=== PATIENT | male | born 1940 | race Caucasian/White ===

== ENCOUNTER → 2018-04-09 14:15 | Outpatient (CLI) | payer MEDICARE, BC, SELFPAY ==
[2018-04-09 15:27] LABS: Add Manual Diff / Slide Review NO; Basophils Percent Auto 1.2 % (0-2); Eosinophils Percent Auto 5.5 % (2-4); Hematocrit 42.1 % (41-53); Hemoglobin 14.4 g/dL (13.5-17.5); Lymphocytes Percent Auto 27.7 % (25-40); Mean Corpuscular HGB Conc 34.2 % (30-36); Mean Corpuscular Hemoglobin 31.7 PG (26-34); Mean Corpuscular Volume 92.5 fL (80-100); Monocytes Percent Auto 8.5 % (3-14); Neutrophils Absolute Auto 4000 /uL (3000-5900); Neutrophils Percent Auto 57.1 % (50-75); Platelet Count 223 X10^3/uL (150-400); Red Blood Cell Count 4.55 X10^6/uL (4.5-5.9); Red Cell Distribution Width 13.4 % (11.6-14.8)
[2018-04-09 15:38] LABS: Alanine Aminotransferase 19 IU/L (21-72); Albumin 4.3 g/dL (3.5-5.0); Albumin Globulin Ratio 1.5 (1.0-2.8); Alkaline Phosphatase 58 U/L (38-126); Aspartate Aminotransferase 25 IU/L (17-59); BUN Creatinine Ratio 18.6 (6-22); Bilirubin Total 0.5 mg/dL (0.2-1.3); Blood Urea Nitrogen 26 mg/dL (9-20); Calcium 10.3 mg/dL (8.4-10.2); Carbon Dioxide 28 mmol/L (22-32); Chloride 103 mmol/L (98-107); Estimated Glomerular Filt Rate 48.9 mL/min (>60); Globulin 2.9 g/dL (1.7-4.1); Glucose 96 mg/dL (80-110); HEMOLYSIS < 15 (0-50); Potassium 4.9 mmol/L (3.4-5.1); Sodium 143 mmol/L (137-145); Total Protein 7.2 g/dL (6.3-8.2)
[2018-04-09 16:24] LABS: Vitamin B12 944 pg/mL (239-931)
== END ==
PROVIDERS: Visit Provider Registered Nurse
DX: Z87.448 Personal history of other diseases of urinary system (principal); F03.90 Unspecified dementia, unspecified severity, without behavioral disturbance, psychotic disturbance, mood disturbance, and anxiety; E16.2 Hypoglycemia, unspecified
CPT/HCPCS: 36415; 80053; 82607; 85025

== ENCOUNTER → 2018-05-21 15:02 | Outpatient (CLI) | payer MEDICARE, BC, SELFPAY ==
[2018-05-21 15:55] LABS: BUN Creatinine Ratio 15.6 (6-22); Blood Urea Nitrogen 25 mg/dL (9-20); Calcium 10.5 mg/dL (8.4-10.2); Carbon Dioxide 26 mmol/L (22-32); Chloride 105 mmol/L (98-107); Estimated Glomerular Filt Rate 41.9 mL/min (>60); Glucose 79 mg/dL (80-110); HEMOLYSIS 76 (0-50); Sodium 142 mmol/L (137-145)
[2018-05-21 15:56] LABS: Potassium 4.8 mmol/L (3.4-5.1)
[2018-05-21 16:40] LABS: Thyroid Stimulating Hormone 2.64 uIU/mL (0.47-4.68)
== END ==
PROVIDERS: PCP Registered Nurse; Visit Provider Registered Nurse
DX: I12.9 Hypertensive chronic kidney disease with stage 1 through stage 4 chronic kidney disease, or unspecified chronic kidney disease (principal)
CPT/HCPCS: 36415; 80048; 84443

== ENCOUNTER → 2018-06-05 11:51 | Outpatient (CLI) | payer MEDICARE, BC, SELFPAY ==
[2018-06-05 12:27] LABS: BUN Creatinine Ratio 15.3 (6-22); Blood Urea Nitrogen 23 mg/dL (9-20); Calcium 10.2 mg/dL (8.4-10.2); Carbon Dioxide 28 mmol/L (22-32); Chloride 102 mmol/L (98-107); Estimated Glomerular Filt Rate 45.1 mL/min (>60); Glucose 74 mg/dL (80-110); HEMOLYSIS 31 (0-50); Potassium 4.3 mmol/L (3.4-5.1); Sodium 141 mmol/L (137-145)
== END ==
PROVIDERS: PCP Registered Nurse; Visit Provider Registered Nurse
DX: N17.9 Acute kidney failure, unspecified (principal)
CPT/HCPCS: 36415; 80048

== ENCOUNTER → 2018-07-16 13:40 | Outpatient (CLI) | payer MEDICARE, BC, SELFPAY ==
[2018-07-16 15:37] LABS: BUN Creatinine Ratio 16.7 (6-22); Blood Urea Nitrogen 20 mg/dL (9-20); Calcium 10.3 mg/dL (8.4-10.2); Carbon Dioxide 28 mmol/L (22-32); Chloride 103 mmol/L (98-107); Estimated Glomerular Filt Rate 58.4 mL/min (>60); Glucose 99 mg/dL (80-110); HEMOLYSIS < 15 (0-50); Potassium 4.5 mmol/L (3.4-5.1); Sodium 140 mmol/L (137-145)
== END ==
PROVIDERS: PCP Registered Nurse; Visit Provider Registered Nurse
DX: I12.9 Hypertensive chronic kidney disease with stage 1 through stage 4 chronic kidney disease, or unspecified chronic kidney disease (principal)
CPT/HCPCS: 36415; 80048

== ENCOUNTER → 2019-01-20 13:48 | Outpatient (CLI) | payer MEDICARE, BC, SELFPAY ==
[2019-01-20 14:42] LABS: Add Manual Diff / Slide Review NO; Basophils Absolute Auto 0 /uL (0-100); Basophils Percent Auto 0.3 % (0-2); Eosinophils Absolute Auto 300 /uL (0-450); Eosinophils Percent Auto 4.5 % (2-4); Hematocrit 43.3 % (41-53); Hemoglobin 14.4 g/dL (13.5-17.5); Lymphocytes Absolute Auto 1900 /uL (1100-4500); Lymphocytes Percent Auto 27.8 % (25-40); Mean Corpuscular HGB Conc 33.4 % (30-36); Mean Corpuscular Hemoglobin 31.3 PG (26-34); Mean Corpuscular Volume 93.6 fL (80-100); Monocytes Absolute Auto 500 /uL (0-900); Monocytes Percent Auto 7.4 % (3-14); Neutrophils Absolute Auto 4200 /uL (1500-7000); Platelet Count 246 X10^3/uL (150-400); Red Blood Cell Count 4.62 X10^6/uL (4.5-5.9); Red Cell Distribution Width 13.8 % (11.6-14.8)
[2019-01-20 15:13] LABS: Alanine Aminotransferase 15 IU/L (21-72); Albumin 4.4 g/dL (3.5-5.0); Albumin Globulin Ratio 1.5 (1.0-2.8); Alkaline Phosphatase 71 U/L (38-126); Aspartate Aminotransferase 23 IU/L (17-59); BUN Creatinine Ratio 15.8 (6-22); Bilirubin Total 0.8 mg/dL (0.2-1.3); Blood Urea Nitrogen 19 mg/dL (9-20); Calcium 10.7 mg/dL (8.4-10.2); Carbon Dioxide 27 mmol/L (22-32); Chloride 102 mmol/L (98-107); Estimated Glomerular Filt Rate 58.3 mL/min (>60); Globulin 2.9 g/dL (1.7-4.1); Glucose 127 mg/dL (80-110); HEMOLYSIS < 15 (0-50); Potassium 4.4 mmol/L (3.4-5.1); Sodium 141 mmol/L (137-145); Total Protein 7.3 g/dL (6.3-8.2)
[2019-01-20 16:02] LABS: Vitamin B12 704 pg/mL (239-931)
== END ==
PROVIDERS: PCP Nurse Practitioner Family; Visit Provider Nurse Practitioner Family
DX: I12.9 Hypertensive chronic kidney disease with stage 1 through stage 4 chronic kidney disease, or unspecified chronic kidney disease (principal)
CPT/HCPCS: 36415; 80053; 82607; 84443; 85025

== ENCOUNTER → 2019-02-17 15:19 | Outpatient (CLI) | payer MEDICARE, BC, SELFPAY ==
[2019-02-17 16:00] LABS: Add Manual Diff / Slide Review NO; Basophils Absolute Auto 100 /uL (0-100); Basophils Percent Auto 0.7 % (0-2); Eosinophils Absolute Auto 400 /uL (0-450); Eosinophils Percent Auto 5.2 % (2-4); Hematocrit 43.8 % (41-53); Hemoglobin 14.6 g/dL (13.5-17.5); Lymphocytes Absolute Auto 2200 /uL (1100-4500); Mean Corpuscular HGB Conc 33.4 % (30-36); Mean Corpuscular Hemoglobin 31.5 PG (26-34); Mean Corpuscular Volume 94.4 fL (80-100); Monocytes Absolute Auto 700 /uL (0-900); Monocytes Percent Auto 9.4 % (3-14); Neutrophils Absolute Auto 4400 /uL (1500-7000); Neutrophils Percent Auto 56.7 % (50-75); Platelet Count 248 X10^3/uL (150-400); Red Blood Cell Count 4.64 X10^6/uL (4.5-5.9); Red Cell Distribution Width 13.5 % (11.6-14.8); White Blood Cell Count 7.7 X10^3/uL (4.5-11.0)
[2019-02-17 16:07] LABS: Alanine Aminotransferase 18 IU/L (21-72); Albumin 4.7 g/dL (3.5-5.0); Albumin Globulin Ratio 1.6 (1.0-2.8); Alkaline Phosphatase 67 U/L (38-126); Aspartate Aminotransferase 26 IU/L (17-59); BUN Creatinine Ratio 15.4 (6-22); Bilirubin Total 0.8 mg/dL (0.2-1.3); Blood Urea Nitrogen 20 mg/dL (9-20); Carbon Dioxide 29 mmol/L (22-32); Chloride 101 mmol/L (98-107); Estimated Glomerular Filt Rate 53.1 mL/min (>60); Glucose 92 mg/dL (80-110); HEMOLYSIS 36 (0-50); Potassium 4.7 mmol/L (3.4-5.1); Sodium 141 mmol/L (137-145); Total Protein 7.7 g/dL (6.3-8.2)
== END ==
PROVIDERS: PCP Nurse Practitioner Family; Visit Provider Nurse Practitioner Family
DX: R17 Unspecified jaundice (principal); R35.0 Frequency of micturition; R45.1 Restlessness and agitation
CPT/HCPCS: 36415; 80053; 85025

== ENCOUNTER → 2019-02-19 11:33 | Outpatient (ROUT) | payer MEDICARE, BC, SELFPAY ==
[2019-02-19 11:35] LABS: Bacteria Urine None Seen; RBC Urine None Seen (0-5/HPF); WBC Urine None Seen (0-5/HPF)
[2019-02-19 11:41] LABS: Appearance Urine UA CLEAR; Bilirubin Urine UA NEGATIVE (NEGATIVE); Color Urine UA YELLOW; Glucose Urine UA NEGATIVE (Negative); Ketones Urine UA NEGATIVE (NEGATIVE); Leukocyte Esterase Urine UA NEGATIVE (NEGATIVE); Nitrite Urine UA NEGATIVE (Negative); Occult Blood Urine UA NEGATIVE (Negative); Protein Urine UA NEGATIVE (Negative); Urobilinogen Urine UA 0.2 E.U./dL (0.2); pH Urine UA 7.5 (4.5-8.0)
[2019-02-19 11:48] LABS: Amorphous Sediment Urine 1+; Culture Indicated Urine Cult Not Indicated
== END ==
PROVIDERS: PCP Nurse Practitioner Family; Visit Provider Nurse Practitioner Family
DX: R39.15 Urgency of urination (principal); R35.0 Frequency of micturition
CPT/HCPCS: 81001

== ENCOUNTER → 2019-04-08 11:13 | Outpatient (CLI) | payer MEDICARE, BC, SELFPAY ==
[2019-04-08 12:05] LABS: Add Manual Diff / Slide Review NO; Basophils Absolute Auto 100 /uL (0-100); Basophils Percent Auto 1.2 % (0-2); Eosinophils Absolute Auto 400 /uL (0-450); Eosinophils Percent Auto 5.4 % (2-4); Hematocrit 42.6 % (41-53); Hemoglobin 14.6 g/dL (13.5-17.5); Lymphocytes Absolute Auto 2000 /uL (1100-4500); Lymphocytes Percent Auto 23.7 % (25-40); Mean Corpuscular HGB Conc 34.2 % (30-36); Mean Corpuscular Hemoglobin 31.7 PG (26-34); Mean Corpuscular Volume 92.5 fL (80-100); Monocytes Absolute Auto 700 /uL (0-900); Monocytes Percent Auto 8.5 % (3-14); Neutrophils Absolute Auto 5100 /uL (1500-7000); Neutrophils Percent Auto 61.2 % (50-75); Platelet Count 252 X10^3/uL (150-400); Red Cell Distribution Width 13.4 % (11.6-14.8); White Blood Cell Count 8.3 X10^3/uL (4.5-11.0)
[2019-04-08 12:16] LABS: Blood Urea Nitrogen 18 mg/dL (9-20); Calcium 10.6 mg/dL (8.4-10.2); Carbon Dioxide 31 mmol/L (22-32); Chloride 100 mmol/L (98-107); Glucose 110 mg/dL (80-110); HEMOLYSIS < 15 (0-50); Potassium 4.2 mmol/L (3.4-5.1); Sodium 138 mmol/L (137-145)
== END ==
PROVIDERS: PCP Nurse Practitioner Family; Visit Provider Registered Nurse
DX: R45.1 Restlessness and agitation (principal); N18.9 Chronic kidney disease, unspecified
CPT/HCPCS: 36415; 80048; 85025

== ENCOUNTER → 2019-06-01 12:19 | Outpatient (CLI) | payer MEDICARE, BC, SELFPAY ==
[2019-06-01 12:47] LABS: Add Manual Diff / Slide Review NO; Basophils Absolute Auto 0 /uL (0-100); Basophils Percent Auto 0.5 % (0-2); Eosinophils Absolute Auto 500 /uL (0-450); Eosinophils Percent Auto 5.3 % (2-4); Hematocrit 42.4 % (41-53); Hemoglobin 14.6 g/dL (13.5-17.5); Lymphocytes Absolute Auto 2800 /uL (1100-4500); Lymphocytes Percent Auto 32.2 % (25-40); Mean Corpuscular HGB Conc 34.5 % (30-36); Mean Corpuscular Hemoglobin 31.7 PG (26-34); Mean Corpuscular Volume 92.1 fL (80-100); Monocytes Absolute Auto 800 /uL (0-900); Monocytes Percent Auto 9.1 % (3-14); Neutrophils Absolute Auto 4700 /uL (1500-7000); Neutrophils Percent Auto 52.9 % (50-75); Platelet Count 314 X10^3/uL (150-400); Red Cell Distribution Width 13.5 % (11.6-14.8); White Blood Cell Count 8.8 X10^3/uL (4.5-11.0)
[2019-06-01 13:19] LABS: Alanine Aminotransferase 15 IU/L (<50); Albumin 4.3 g/dL (3.5-5.0); Albumin Globulin Ratio 1.3 (1.0-2.8); Alkaline Phosphatase 95 U/L (38-126); Aspartate Aminotransferase 23 IU/L (17-59); BUN Creatinine Ratio 12.4 (6-22); Bilirubin Total 0.5 mg/dL (0.2-1.3); Blood Urea Nitrogen 21 mg/dL (9-20); Calcium 10.7 mg/dL (8.4-10.2); Carbon Dioxide 30 mmol/L (22-32); Chloride 103 mmol/L (98-107); Globulin 3.2 g/dL (1.7-4.1); Glucose 74 mg/dL (80-110); HEMOLYSIS < 15 (0-50); Potassium 4.3 mmol/L (3.4-5.1); Sodium 142 mmol/L (137-145); Total Protein 7.5 g/dL (6.3-8.2)
== END ==
PROVIDERS: PCP Nurse Practitioner Family; Referring Provider Nurse Practitioner Family; Visit Provider Nurse Practitioner Family
DX: R25.1 Tremor, unspecified (principal); R53.83 Other fatigue
CPT/HCPCS: 36415; 80053; 85025

== ENCOUNTER → 2019-06-16 14:43 | Outpatient (CLI) | payer MEDICARE, BC, SELFPAY ==
[2019-06-16 16:15] LABS: BUN Creatinine Ratio 14.3 (6-22); Blood Urea Nitrogen 20 mg/dL (9-20); Calcium 10.5 mg/dL (8.4-10.2); Carbon Dioxide 29 mmol/L (22-32); Chloride 105 mmol/L (98-107); Estimated Glomerular Filt Rate 48.8 mL/min (>60); Glucose 93 mg/dL (80-110); HEMOLYSIS < 15 (0-50); Potassium 4.5 mmol/L (3.4-5.1); Sodium 143 mmol/L (137-145)
== END ==
PROVIDERS: PCP Nurse Practitioner Family; Referring Provider Nurse Practitioner Family; Visit Provider Nurse Practitioner Family
DX: N18.9 Chronic kidney disease, unspecified (principal); N17.9 Acute kidney failure, unspecified
CPT/HCPCS: 36415; 80048

== ENCOUNTER 2019-11-03 09:20 | Emergency (ER) | payer MEDICARE, BC, SELFPAY ==
[2019-11-03] VITALS (8 sets, daily range): BP systolic 109–149; BP diastolic 56–67; PULSE 53–66; RESP 21–38; TEMP 36.6; O2SAT 95–99
--- NOTE | 2019-11-03 09:34 | ED.SEIZURE ---
HPI - Seizure General Chief Complaint: Seizure Stated Complaint: shaking x 2 min, now at baseline Time Seen by Provider: 11/03/19 09:20 Source: EMS Mode of arrival: EMS Limitations: altered mental status History of Present Illness HPI Narrative: 79-year-old male former smoker with history of dementia presents with EMS for evaluation of an episode of shaking that was witnessed by staff at the senior living earlier today. At baseline he has a resting tremor but apparently today's episode was more significant and his whole body was shaking. There is not a great history of the event but there is some question as to whether not his eyes may have rolled back briefly, there is no suggestion of a postictal phase and the patient immediately returned back to his normal. He has no recent runny nose, sore throat or cough. He has had no fever or chills. No change in medications or diet. He has no seizure history. He has had no recent trauma. Patient had returned to his baseline prior to transfer and continues to be there on his arrival. MD complaint: possible seizure Onset (ago): minute(s) Description of Episode: loss of consciousness and tonic-clonic movement -: second(s) Witnessed: yes - by bystander Related Data Home Medications Medication Instructions Recorded Confirmed acetaminophen 650 mg PO Q4H PRN 11/03/19 11/03/19 aspirin [Adult Low Dose Aspirin] 81 mg PO DAILY 11/03/19 11/03/19 citalopram 15 mg PO DAILY 11/03/19 11/03/19 lorazepam 0.5 mg PO Q6HR PRN 11/03/19 11/03/19 mirtazapine 15 mg PO BEDTIME 11/03/19 11/03/19 trazodone 100 mg PO BID 11/03/19 11/03/19 vitamins A,C,N-dgcm-dktrqi 1 cap PO BID 11/03/19 11/03/19 [PreserVision AREDS] Allergies Allergy/AdvReac Type Severity Reaction Status Date / Time rivastigmine [From Exelon] Allergy Severe Gastrointestinal Verified 11/03/19 09:40 Upset gluten AdvReac Intermediate Gastrointestinal Verified 11/03/19 09:40 Upset Review of Systems Review of Systems ROS Unobtainable: Unobtainable due to mental status/LOC Patient History Medical History Alzheimer's dementia with behavioral disturbance (Acute) Anxiety (Acute) Chest pain (Acute) Chronic kidney disease (Acute) Hypoglycemia (Acute) Social History Smoking Status: Former smoker Smoking Status: Former smoker alcohol intake frequency: 0-2 drinks per day Substance Use Type: does not use Exam Narrative Exam Narrative: GENERAL: [79] year old patient appears stated age. Well-nourished, well-developed patient, in mild distress, asking about a Band-Aid on his finger. Awake but confused HEAD: Atraumatic. Normocephalic. EYES: Pupils equal round and reactive. Extraocular motions intact. No scleral icterus. No injection or drainage. ENT: Nose without bleeding, purulent drainage. Throat without erythema, tonsillar hypertrophy or exudate. Airway patent. NECK: Trachea midline. Non tender CARDIOVASCULAR: Regular rate and rhythm without murmurs, gallops, or rubs. RESPIRATORY: Clear to auscultation. Breath sounds equal bilaterally. No wheezes, rales, or rhonchi. GASTROINTESTINAL: Abdomen soft, non-tender, nondistended. EXTREMITIES: No edema or joint tenderness. BACK: Nontender without deformity or crepitance. No flank tenderness. NEURO: Awake, moving all extremities. SKIN: No rash or erythema of visible areas Initial Vital Signs Initial Vital Signs: Vital Signs Temperature 97.9 F 11/03/19 09:22 Pulse Rate 62 11/03/19 09:22 Respiratory Rate 21 11/03/19 09:22 Blood Pressure 149/56 H 11/03/19 09:22 Pulse Oximetry 95 11/03/19 09:22 Course Orders Ordered: ED Orders 11/03/19 09:21 EKG-12 Lead Stat 11/03/19 09:34 Basic Metabolic Panel Stat Complete Blood Count AUTO DIFF Stat Lactate (Lactic Acid) Stat Procalcitonin Stat 11/03/19 09:52 Blood Culture Stat 11/03/19 10:25 CT head/brain wo con Stat Discontinued Medications Lorazepam (Ativan) 0.5 mg PO NOW ONE Stop: 11/03/19 11:10 Last Admin: 11/03/19 11:15 Dose: 0.5 mg Documented by: LEIGHTON Vital Signs Vital signs: Vital Signs - 8 hr 11/03/19 09:22 11/03/19 09:29 11/03/19 09:30 Temperature 97.9 F Pulse Rate 62 62 66 Respiratory Rate 21 Blood Pressure 149/56 H Pulse Oximetry 95 95 97 11/03/19 10:00 11/03/19 10:01 11/03/19 10:30 Temperature Pulse Rate 59 L 57 L 58 L Respiratory Rate 38 H 31 H 29 H Blood Pressure 109/59 L Pulse Oximetry 97 97 97 11/03/19 10:44 11/03/19 11:00 Temperature Pulse Rate 64 53 L Respiratory Rate 25 H Blood Pressure 142/67 H Pulse Oximetry 99 MDM - Seizure Lab Data Result diagrams: 11/03/19 09:34 11/03/19 09:34 Labs: Lab Results 11/03/19 11/03/19 11/03/19 Range/Units 09:34 09:34 09:34 WBC 7.2 (4.5-11.0) X10^3/uL RBC 4.39 L (4.5-5.9) X10^6/uL Hgb 13.5 (13.5-17.5) g/dL Hct 41.2 (41-53) % MCV 93.9 (80-100) fL MCH 30.9 (26-34) PG MCHC 32.9 (30-36) % RDW 13.7 (11.6-14.8) % Plt Count 197 (150-400) X10^3/uL Neut % (Auto) 56.6 (50-75) % Lymph % (Auto) 27.5 (25-40) % [place] % (Auto) 8.3 (3-14) % Eos % (Auto) 6.3 H (2-4) % Baso % (Auto) 1.3 (0-2) % Neut # (Auto) 4100 (2312-2403) /uL Lymph # (Auto) 2000 (7407-1240) /uL [place] # (Auto) 600 (0-900) /uL Eos # (Auto) 500 H (0-450) /uL Baso # (Auto) 100 (0-100) /uL Sodium 140 (137-145) mmol/L Potassium 4.4 (3.4-5.1) mmol/L Chloride 110 H (98-107) mmol/L Carbon Dioxide 26 (22-32) mmol/L BUN 24 H (9-20) mg/dL Creatinine 1.30 H (0.66-1.25) mg/dL Estimated GFR 53.0 L (>60) mL/min BUN/Creatinine Ratio 18.5 (6-22) Glucose 88 (80-110) mg/dL Lactate (0.7-2.1) mmol/L Calcium 10.2 (8.4-10.2) mg/dL Procalcitonin < 0.05 (<0.5) ng/mL 11/03/19 Range/Units 09:34 WBC (4.5-11.0) X10^3/uL RBC (4.5-5.9) X10^6/uL Hgb (13.5-17.5) g/dL Hct (41-53) % MCV (80-100) fL MCH (26-34) PG MCHC (30-36) % RDW (11.6-14.8) % Plt Count (150-400) X10^3/uL Neut % (Auto) (50-75) % Lymph % (Auto) (25-40) % [place] % (Auto) (3-14) % Eos % (Auto) (2-4) % Baso % (Auto) (0-2) % Neut # (Auto) (0680-2941) /uL Lymph # (Auto) (9204-9507) /uL [place] # (Auto) (0-900) /uL Eos # (Auto) (0-450) /uL Baso # (Auto) (0-100) /uL Sodium (137-145) mmol/L Potassium (3.4-5.1) mmol/L Chloride (98-107) mmol/L Carbon Dioxide (22-32) mmol/L BUN (9-20) mg/dL Creatinine (0.66-1.25) mg/dL Estimated GFR (>60) mL/min BUN/Creatinine Ratio (6-22) Glucose (80-110) mg/dL Lactate 1.1 (0.7-2.1) mmol/L Calcium (8.4-10.2) mg/dL Procalcitonin (<0.5) ng/mL Imaging Data CT scan - head: Radiologist's Impression: Chart Viewer Diagnostics DATE TYPE STATUS REF RANGE/AUTHOR Hx 11/03/19 10:25 Ochoa Heaton Raúl Dutton 79, M0 1940 REG ER, Main ED R08 Seizure Search Chart No Data to Display Gastrointestinal Upset Gastrointestinal Upset ONSET Today 10:01 RAÚL DUTTON 79 M 1940 [place] [address] CT Scan Report Signed Patient: GERALD DUTTONR#: [id number] : 1940cct:[id number] Age/Sex: 79 / MDate of Service: 11/03/19 Loc: ED Accession Number: [id number] Procedure: CT head/brain wo con Ordering Provider: Christian Evans D.O. PROCEDURE: CT HEAD/BRAIN WO CON INDICATIONS: New onset seizure activity TECHNIQUE: Noncontrast 4.5 mm thick angled axial sections acquired from the foramen magnum to the vertex, with coronal and sagittal reformats. For radiation dose reduction, the following was used: automated exposure control, adjustment of mA and/or kV according to patient size. COMPARISON: None. FINDINGS: Image quality: Excellent. CSF spaces: Basal cisterns are patent. No extra-axial fluid collections. The ventricles are symmetric in size and shape. Brain: No intracranial bleeds or masses. There is global cerebral volume loss with past expansion of the ventricles extra-axial spaces. Advanced chronic microvascular ischemic changes are present. There is no cerebral edema or evidence of intracranial mass. No findings of mass effect. There is intracranial internal carotid artery atherosclerosis. Skull and face: Calvarium and visualized facial bones appear intact, without suspicious lesions. Sinuses: Visualized sinuses and mastoids are clear. IMPRESSION: Global cerebral volume loss with findings of chronic microvascular ischemic disease, both advanced for age. No acute intracranial finding. MRI with contrast should be considered for further workup if clinically warranted Dictated by: Ochoa Heaton M.D. on 11/03/2019 at 10:44 Approved by: Ochoa Heaton M.D. on 11/03/2019 at 10:46 MDM Narrative Medical decision making narrative: Multiple etiologies for patient's symptoms considered including: [Tremor versus rigors from infection (thought unlikely given lack of infectious findings), versus seizure activity, thought unlikely given lack of any postictal phase or loss of bladder control vs. other)] Patient's symptoms improved prior to patient arriving Findings and discharge diagnosis discussed with patient/family followed by verbalization of understanding Return precautions discussed with patient/family whom verbalize understanding. Discharge Plan Departure Patient Disposition: Home Clinical Impression: Coarse tremors Discharge Date/Time: 11/03/19 11:46 Activity Restrictions/Additional Instructions: *You have been diagnosed with [increased tremor, seizure considered but thought unlikely] *What to do: *Take medications as directed *Follow up with your primary care provider in 2-3 days, call for an appointment. Let them know you were seen in the Emergency Department and that we ask that you be seen in follow up *Return to ER if you should have any new, worsening or concerning symptoms Prescriptions: No Action acetaminophen 325 mg Tablet 650 mg PO Q4H PRN (Reason: headache, pain, fever ) RF: 0 citalopram 10 mg/5 mL Solution 15 mg PO DAILY RF: 0 aspirin [Adult Low Dose Aspirin] 81 mg Tablet,Delayed Release (Dr/Ec) 81 mg PO DAILY RF: 0 lorazepam 0.5 mg Tablet 0.5 mg PO Q6HR PRN (Reason: Anxiety) RF: 0 trazodone 100 mg Tablet 100 mg PO BID RF: 0 mirtazapine 15 mg Tablet,Disintegrating 15 mg PO BEDTIME RF: 0 PreserVision AREDS [id number] Capsule 1 cap PO BID RF: 0 Referrals: Anju Olivarez ARNP [Primary Care Provider] -
[2019-11-03 09:39] LABS: Add Manual Diff / Slide Review NO; Basophils Absolute Auto 100 /uL (0-100); Basophils Percent Auto 1.3 % (0-2); Eosinophils Absolute Auto 500 /uL (0-450); Eosinophils Percent Auto 6.3 % (2-4); Hematocrit 41.2 % (41-53); Hemoglobin 13.5 g/dL (13.5-17.5); Lymphocytes Absolute Auto 2000 /uL (1100-4500); Lymphocytes Percent Auto 27.5 % (25-40); Mean Corpuscular HGB Conc 32.9 % (30-36); Mean Corpuscular Hemoglobin 30.9 PG (26-34); Mean Corpuscular Volume 93.9 fL (80-100); Monocytes Absolute Auto 600 /uL (0-900); Monocytes Percent Auto 8.3 % (3-14); Neutrophils Absolute Auto 4100 /uL (1500-7000); Neutrophils Percent Auto 56.6 % (50-75); Platelet Count 197 X10^3/uL (150-400); Red Blood Cell Count 4.39 X10^6/uL (4.5-5.9); Red Cell Distribution Width 13.7 % (11.6-14.8); White Blood Cell Count 7.2 X10^3/uL (4.5-11.0)
[2019-11-03 09:48] LABS: BUN Creatinine Ratio 18.5 (6-22); Blood Urea Nitrogen 24 mg/dL (9-20); Calcium 10.2 mg/dL (8.4-10.2); Carbon Dioxide 26 mmol/L (22-32); Chloride 110 mmol/L (98-107); Glucose 88 mg/dL (80-110); HEMOLYSIS < 15 (0-50); Lactate (Lactic Acid) 1.1 mmol/L (0.7-2.1); Potassium 4.4 mmol/L (3.4-5.1); Sodium 140 mmol/L (137-145)
[2019-11-03 10:04] LABS: Procalcitonin < 0.05 ng/mL (<0.5)
--- NOTE | 2019-11-03 10:25 | DI.CT.S_ITS ---
PROCEDURE: CT HEAD/BRAIN WO CON INDICATIONS: New onset seizure activity TECHNIQUE: Noncontrast 4.5 mm thick angled axial sections acquired from the foramen magnum to the vertex, with coronal and sagittal reformats. For radiation dose reduction, the following was used: automated exposure control, adjustment of mA and/or kV according to patient size. COMPARISON: None. FINDINGS: Image quality: Excellent. CSF spaces: Basal cisterns are patent. No extra-axial fluid collections. The ventricles are symmetric in size and shape. Brain: No intracranial bleeds or masses. There is global cerebral volume loss with past expansion of the ventricles extra-axial spaces. Advanced chronic microvascular ischemic changes are present. There is no cerebral edema or evidence of intracranial mass. No findings of mass effect. There is intracranial internal carotid artery atherosclerosis. Skull and face: Calvarium and visualized facial bones appear intact, without suspicious lesions. Sinuses: Visualized sinuses and mastoids are clear. IMPRESSION: Global cerebral volume loss with findings of chronic microvascular ischemic disease, both advanced for age. No acute intracranial finding. MRI with contrast should be considered for further workup if clinically warranted Dictated by: Ochoa Heaton M.D. on 11/03/2019 at 10:44 Approved by: Ochoa Heaton M.D. on 11/03/2019 at 10:46
--- NOTE | 2019-11-03 11:08 | PC.NURSE ---
Pt w/ increased agitation, pulled out IV, pulled off monitoring lines. Verbally reassured. Would not allow pressure to be placed on left forearm IV but no active bleeding. + small hematoma developing.
[2019-11-03] MEDS: LORazepam 0.5 MG TABLET PO (11:15)
== END 2019-11-03 11:46 | disposition home or self-care (01) ==
PROVIDERS: Emergency Provider Emergency Medicine; PCP Nurse Practitioner Family
DX: G25.2 Other specified forms of tremor (principal); F03.90 Unspecified dementia, unspecified severity, without behavioral disturbance, psychotic disturbance, mood disturbance, and anxiety
CPT/HCPCS: 36415; 70450; 80048; 83605; 84145; 85025; 87040; 93005; 93010; 99284

== ENCOUNTER → 2020-03-20 14:34 | Outpatient (CLI) | payer MEDICARE, BC, SELFPAY ==
[2020-03-20 15:06] LABS: Add Manual Diff / Slide Review NO; Basophils Absolute Auto 0 /uL (0-100); Basophils Percent Auto 0.2 % (0-2); Eosinophils Absolute Auto 400 /uL (0-450); Eosinophils Percent Auto 5.7 % (2-4); Hematocrit 37.4 % (41-53); Hemoglobin 12.4 g/dL (13.5-17.5); Lymphocytes Absolute Auto 1800 /uL (1100-4500); Lymphocytes Percent Auto 27.3 % (25-40); Mean Corpuscular HGB Conc 33.2 % (30-36); Mean Corpuscular Hemoglobin 31.3 PG (26-34); Mean Corpuscular Volume 94.2 fL (80-100); Monocytes Absolute Auto 700 /uL (0-900); Monocytes Percent Auto 9.8 % (3-14); Neutrophils Absolute Auto 3800 /uL (1500-7000); Platelet Count 212 X10^3/uL (150-400); Red Blood Cell Count 3.97 X10^6/uL (4.5-5.9); Red Cell Distribution Width 13.8 % (11.6-14.8); White Blood Cell Count 6.7 X10^3/uL (4.5-11.0)
[2020-03-20 15:36] LABS: Alanine Aminotransferase 18 IU/L (<50); Albumin 3.8 g/dL (3.5-5.0); Albumin Globulin Ratio 1.3 (1.0-2.8); Alkaline Phosphatase 76 U/L (38-126); Aspartate Aminotransferase 24 IU/L (17-59); BUN Creatinine Ratio 18.8 (6-22); Bilirubin Total 0.3 mg/dL (0.2-1.3); Blood Urea Nitrogen 24 mg/dL (9-20); Calcium 9.7 mg/dL (8.4-10.2); Carbon Dioxide 28 mmol/L (22-32); Chloride 108 mmol/L (98-107); Estimated Glomerular Filt Rate 53.9 mL/min (>60); Glucose 93 mg/dL (80-110); HEMOLYSIS < 15 (0-50); Potassium 4.7 mmol/L (3.4-5.1); Sodium 139 mmol/L (137-145); Total Protein 6.8 g/dL (6.3-8.2)
[2020-03-20 16:09] LABS: Thyroid Stimulating Hormone 2.64 uIU/mL (0.47-4.68)
== END ==
PROVIDERS: PCP Nurse Practitioner Family; Referring Provider Nurse Practitioner Family; Visit Provider Nurse Practitioner Family
DX: R45.1 Restlessness and agitation (principal); N18.9 Chronic kidney disease, unspecified
CPT/HCPCS: 36415; 80053; 84443; 85025

== ENCOUNTER 2022-03-15 01:42 | Emergency (ER) | payer MEDICARE, BC, SELFPAY ==
[2022-03-15 01:51] VITALS: BP 128/82; PULSE 90; RESP 68; O2SAT 97
--- NOTE | 2022-03-15 02:41 | DI.CT.S_ITS ---
PROCEDURE: CT HEAD/BRAIN WO CON INDICATIONS: GLF, head injury TECHNIQUE: Noncontrast 4.5 mm thick angled axial sections acquired from the foramen magnum to the vertex, with coronal and sagittal reformats. For radiation dose reduction, the following was used: automated exposure control, adjustment of mA and/or kV according to patient size. COMPARISON: [facility], CT, CT HEAD/BRAIN WO CON, 11/03/2019, 10:30. FINDINGS: Image quality: Excellent. CSF spaces: Basal cisterns are patent. No extra-axial fluid collections. The ventricles are symmetric in size and shape. Brain: No intracranial bleeds or masses. There is cerebral volume loss for age, with resultant ventricular and sulcal prominence. There are periventricular and deep white matter chronic small vessel ischemic changes. There is intracranial internal carotid artery atherosclerosis. Skull and face: Calvarium and visualized facial bones appear intact, without suspicious lesions. Sinuses: Visualized sinuses and mastoids are clear. IMPRESSION: 1. No acute intracranial abnormalities. 2. Cerebral volume loss and chronic microvascular ischemic changes. No significant discrepancy with the night supervisor radiology preliminary report. Dictated by: Rl Méndez M.D. on 03/15/2022 at 7:44 Approved by: Rl Méndez M.D. on 03/15/2022 at 7:46
--- NOTE | 2022-03-15 04:52 | ED.WOUNDLAC ---
HPI - Wound/Laceration General Chief Complaint: Wound/Laceration Stated Complaint: GLF Time Seen by Provider: 03/15/22 02:13 Source: EMS Mode of arrival: EMS History of Present Illness HPI narrative: 81-year-old gentleman from [facility] with severe dementia had an unwitnessed fall with a laceration to the right temporal area of his head. Bleeding is controlled. Patient has no complaints but is minimally verbal. There are no obvious other injuries. Related Data Home Medications Medication Instructions Recorded Confirmed acetaminophen 325 mg tablet 650 mg PO Q4H PRN headache, pain, 11/03/19 11/03/19 fever aspirin 81 mg tablet,delayed 81 mg PO DAILY 11/03/19 11/03/19 release (Adult Low Dose Aspirin) citalopram 10 mg/5 mL oral solution 15 mg PO DAILY 11/03/19 11/03/19 lorazepam 0.5 mg tablet 0.5 mg PO Q6HR PRN Anxiety 11/03/19 11/03/19 mirtazapine 15 mg disintegrating 15 mg PO BEDTIME 11/03/19 11/03/19 tablet trazodone 100 mg tablet 100 mg PO BID 11/03/19 11/03/19 vitamins A,C,F-krcn-iegokv 14,320 1 cap PO BID 11/03/19 11/03/19 unit-226 mg-200 unit capsule (PreserVision AREDS) Allergies Allergy/AdvReac Type Severity Reaction Status Date / Time rivastigmine [From Exelon] Allergy Severe Gastrointestinal Verified 11/03/19 09:40 Upset gluten AdvReac Intermediate Gastrointestinal Verified 11/03/19 09:40 Upset Review of Systems Review of Systems ROS Unobtainable: Unobtainable due to mental condition Patient History Medical History (Updated 03/15/22 @ 04:59 by Ilana Rankin MD) Alzheimer's dementia with behavioral disturbance Anxiety Chest pain Chronic kidney disease Hypoglycemia Social History Smoking Status: Former smoker Smoking Status: Former smoker alcohol intake frequency: 0-2 drinks per day Substance Use Type: does not use Exam Initial Vital Signs Initial Vital Signs: Vital Signs Pulse Rate 90 03/15/22 01:51 Respiratory Rate 68 H 03/15/22 01:51 Blood Pressure 128/82 03/15/22 01:51 Pulse Oximetry 97 03/15/22 01:51 Oxygen Delivery Method 03/15/22 01:51 General: Frail, chronically ill-appearing, laceration to the temporal area. Not answering questions nor complaining. HEENT: Moist mucous membranes, normal sclera with reactive pupils, 2 cm laceration temporal area right side Respiratory: Lungs are clear to auscultation, no wheezing no rales no rhonchi. Full and symmetrical air movement Cardiac: Regular rate and rhythm no murmurs no bruits Abdomen: Soft, scaphoid, nontender, good bowel tones, no flank pain Skin: Warm and dry, quite thin, no dramatic bruising or abrasions aside from the 2 cm laceration to the temporal area Neurologic: Moving all extremities Extremities: No trauma, well perfused Psych: Significant dementia Procedures Laceration Repair Right temporal/top of head: Time of procedure: 04:59 Site: scalp Side (If applicable): right Size (cm): 2 Description: irregular Depth: simple, single layer Pre-repair: wound explored and deep structures intact Skin layer closed with: dermabond (And Steri-Strips) Course Orders Ordered: ED Orders 03/15/22 02:41 CT head/brain wo con Stat Vital Signs Vital signs: Vital Signs - 8 hr 03/15/22 01:51 Pulse Rate 90 Respiratory Rate 68 H Blood Pressure 128/82 Pulse Oximetry 97 Oxygen Delivery Method Room Air [facility] - Wound/Laceration Imaging Data CT scan - head: Radiologist's Impression: Slight right frontal scalp swelling. Slight faint linear hyperattenuation bilateral inferior frontal lobes likely patient artifact slight subarachnoid hemorrhage is unlikely, no other intracranial hemorrhage seen Yandy Olivier MD [facility] Narrative Medical decision making narrative: Significantly demented 81-year-old gentleman unwitnessed fall laceration to the head no evidence of internal bleeding. Wound is cleaned. He has no cervical spine tenderness to palpation. No obvious other injuries. Dementia is advanced enough that he is not able to contribute to history or exam. The wound is closed with skin glue and Steri-Strips. BLS transport will be arranged back to [facility]. Discharge Plan Departure Patient Disposition: Home Clinical Impression: Laceration Fall Qualifiers: Encounter type: initial encounter Qualified Code(s): W19.XXXA - Unspecified fall, initial encounter Advanced dementia Qualifiers: Dementia type: Alzheimer's Activity Restrictions/Additional Instructions: Mr. Astorga had an unwitnessed fall today His head CT did not reveal intracranial bleeding The laceration to the temporal top of his head area was closed with skin glue and Steri-Strips. The Steri-Strips will begin to peel off in 5-7 days. If the dressing comes off sooner because he is picking at it, please use antibiotic ointment and a Band-Aid. It will continue to heal. Prescriptions: No Action acetaminophen 325 mg Tablet 650 mg PO Q4H PRN (Reason: headache, pain, fever ) citalopram 10 mg/5 mL Solution 15 mg PO DAILY aspirin [Adult Low Dose Aspirin] 81 mg Tablet,Delayed Release (Dr/Ec) 81 mg PO DAILY lorazepam 0.5 mg Tablet 0.5 mg PO Q6HR PRN (Reason: Anxiety) trazodone 100 mg Tablet 100 mg PO BID mirtazapine 15 mg Tablet,Disintegrating 15 mg PO BEDTIME PreserVision AREDS [id number] Capsule 1 cap PO BID Referrals: Anju Olivarez ARNP [Primary Care Provider] -
== END 2022-03-15 08:35 | disposition home or self-care (01) ==
PROVIDERS: Emergency Provider Emergency Medicine; PCP Nurse Practitioner Family
DX: S01.01XA Laceration without foreign body of scalp, initial encounter (principal); W18.30XA Fall on same level, unspecified, initial encounter; G30.9 Alzheimer's disease, unspecified; F02.80 Dementia in other diseases classified elsewhere, unspecified severity, without behavioral disturbance, psychotic disturbance, mood disturbance, and anxiety
CPT/HCPCS: 70450; 99284